=== PATIENT | male | born 1960 | race Caucasian/White ===

== ENCOUNTER 2019-12-12 06:36 | Day surgery (SDC) | payer BC ==
[2019-12-10 12:33] VITALS: BMI 32.7
[2019-12-12] MEDS ORDERED: Levofloxacin 500 mg/D5W 100 ml Premix Bag ONE (06:49)
[2019-12-12] MEDS ORDERED: Iothalamate Meglumine 60% 50 ML VIAL FS ONE (07:11)
[2019-12-12] MEDS ORDERED: Bicitra 30 ML UDCUP PO SCH (09:15)
[2019-12-12] MEDS ORDERED: Oxybutynin 5 MG TAB ONE (10:18)
[2019-12-12] MEDS ORDERED: Ketorolac Tromethamine 30 MG/ML VIAL ONE (10:18)
--- NOTE | 2019-12-12 10:22 | OP ---
DATE OF PROCEDURE: 12/12/2019 PREOPERATIVE DIAGNOSIS: Right renal stone. POSTOP DIAGNOSIS: Right renal stone. PROCEDURES PERFORMED: Right ureteroscopy with laser lithotripsy, basket extraction of stone, retrograde pyelogram, intraoperative interpretation of radiologic imaging, 6 x 26 double-J ureteral stent without string placement. ANESTHESIA: General. COMPLICATIONS: None. ESTIMATED BLOOD LOSS: None. SPECIMEN: Right renal stone fragments. DESCRIPTION OF PROCEDURE: After informed consent, the patient was taken to the operating room, transferred to the table on his own power. Anesthesia was established. A time-out was performed showing the correct patient, site, and procedure. Preoperative antibiotics were administered. He was prepped and draped in the lithotomy position. The rigid cystoscope was advanced through the urethra noting normal course and caliber of the urethra with no significant prostate obstruction. The bladder was entered and systematically examined noting no mucosal abnormalities. The right ureteral orifice was cannulated with a wire, which was passed up to the level of the renal pelvis under fluoroscopic guidance. The access sheath was passed over the wire into the proximal ureter under fluoroscopic guidance and retrograde pyelogram performed through this showing good filling of the ureter and renal pelvis without obvious filling defect. The flexible ureteroscope was passed through this into the renal pelvis, where the stone was quickly encountered. A 273 micron laser fiber was used to fragment the stone into several small pieces. These were all removed with a [employer] basket and passed off as specimen. The collecting system was then re-examined noting only clinically insignificant stone fragments remaining. The pelvis was filled with contrast and then the scope and access sheath withdrawn leaving a wire in place. A 6 x 26 double-J ureteral stent was passed over the wire with a curl in the kidney and curl in the bladder under fluoroscopic guidance. Completion images were taken. Job ID: [id number]
[2019-12-12] MEDS ORDERED: Fentanyl 100 MCG/2 ML VIAL ONE ×2 (10:26→10:53)
[2019-12-12] MEDS ORDERED: hydrALAZINE 20 MG/ML VIAL ONE (10:39)
--- NOTE | 2019-12-12 10:49 | RAD ---
Retrograde pyelogram: 12/12/2019 HISTORY: Stent placement COMPARISON: None HISTORY: Single radiograph from a retrograde pyelogram demonstrates a right ureteral stent with contr ast media within the renal collecting system. IMPRESSION: Retrograde pyelogram as above.
[2019-12-12] MEDS ORDERED: PROPOFOL 200 MG/20 ML VIAL ONE (11:04)
[2019-12-12] MEDS ORDERED: HYDROcodone/Acetaminophen 5/325 mg Tablet ONE (11:30)
[2019-12-12] MEDS ORDERED: Morphine 2 MG/ML VIAL ONE (11:53)
[2019-12-12] MEDS ORDERED: Promethazine HCl 25 MG/ML VIAL ONE (11:53)
== END 2019-12-12 12:45 | disposition home or self-care (01) ==
LOC: SDC 06:36
PROVIDERS: ATTEND Urology
PROC: 0T768DZ Dilation of Right Ureter with Intraluminal Device, Via Natural or Artificial Opening Endoscopic (ICD-10-PCS; principal; 2019-12-12)
PROC: 0TC38ZZ Extirpation of Matter from Right Kidney Pelvis, Via Natural or Artificial Opening Endoscopic (ICD-10-PCS; principal; 2019-12-12)
DX: N20.0 Calculus of kidney (principal); M06.9 Rheumatoid arthritis, unspecified; J30.2 Other seasonal allergic rhinitis; Z79.899 Other long term (current) drug therapy
CPT/HCPCS: 74420; 82365; 88300; J0360; J1885; J1956; J2270; J2550; J2704; J3010